=== PATIENT | male | born 1990 | race Caucasian/White ===

== ENCOUNTER 2023-07-25 10:07 | Day surgery (SDC) | payer OTHER ==
[~2023-07-25 10:07] MED LIST: LACTATED RINGERS 1,000 ML IV SCH
[2023-07-25 10:55] VITALS: RESP 16; TEMP 97.5
[2023-07-25] MEDS ORDERED: PROPOFOL 10 MG/ML 20 ML VIAL IV ONE (11:44)
[2023-07-25] MEDS ORDERED: LIDOCAINE 1% INJ 10MG/ML (20 ML MDV) ONE (11:44)
--- NOTE | 2023-07-25 11:55 | P.PCN ---
Date of Procedure: 07/25/23 Procedure(s) Performed: BRIEF HISTORY: Patient is a 32-year-old, pleasant, white male scheduled for an upper endoscopy as a part of evaluation of long-standing history of GERD. Lately has been having intermittent chest pain and pressure like sensation that happens once a week or so results. Denies any dysphagia or anesthesia.. PROCEDURE PERFORMED: Esophagogastroduodenoscopy with biopsy. PREOPERATIVE DIAGNOSIS: Atypical chest pain. IV sedation per anesthesia. PROCEDURE: After informed consent was obtained, the patient was brought into the endoscopy unit. IV sedation was administered by Anesthesia under continuous monitoring. Initially the Olympus GIF-140 video endoscope was inserted into the mouth. Esophagus intubated without any difficulty. It was gradually advanced into the stomach and duodenum and carefully examined. The bulb and the second part of the duodenum appeared normal. The scope at this time was withdrawn to the stomach, adequately insufflated with air, and upon careful examination, mucosa of the antrum, had patchy areas of erythema consistent with gastritis and biopsies were done from this area. Mucosa of the body, cardia and the fundus appeared normal. The scope was then withdrawn into the esophagus. The GE junction was located at 41 cm from the incisors. The esophagus appeared normal. There were no erosions or ulcerations seen , biopsies were done from the distal esophagus and the patient tolerated the procedure well. IMPRESSION: 1. Normal-appearing esophagus with no evidence of esophagitis or esophageal stricture. 2. Mild antral gastritis. RECOMMENDATIONS: The findings of this examination were discussed with the patient as well as his family. He was advised to follow with the biopsy results. In the meantime will give him a trial of omeprazole 20 mg daily and was briefly educated about antireflux measures..
[2023-07-25 12:38] VITALS: BP 113/76; PULSE 67
== END 2023-07-25 12:55 | disposition home or self-care (01) ==
LOC: ORWHC2ENDO 10:07
PROVIDERS: ATTEND Internal Medicine Gastroenterology
DX: K29.50 Unspecified chronic gastritis without bleeding (principal); K21.00 Gastro-esophageal reflux disease with esophagitis, without bleeding; Z79.899 Other long term (current) drug therapy
CPT/HCPCS: 88305; 43239; J2001; J2704

== ENCOUNTER → 2023-10-17 | Outpatient (CLI) | payer OTHER ==
--- NOTE | 2023-10-20 15:26 | US ---
EXAMINATION TYPE: US gallbladder DATE OF EXAM: 10/17/2023 COMPARISON: NONE CLINICAL INDICATION: Male, 33 years old with history of R07.89 OTHER CHEST PAIN; Patient states upper chest pain. Has acid reflux. TECHNIQUE: Multiple sonographic images of the right upper quadrant are obtained. FINDINGS: EXAM MEASUREMENTS: Liver Length: 13.1 cm Gallbladder Wall: 0.2 cm CBD: 0.5 cm Right Kidney: 10.2 x 4.0 x 5.3 cm YARD ASSISTANT NOTES:Slightly limited due to overlying bowel gas Pancreas: Visualized portions WNL. Partially obscured by overlying gas. Liver: wnl Gallbladder: A few mural-based, nonshadowing areas of nodularity measuring up to 3 mm. No abnormal g allbladder wall thickening, hydropic change, or surrounding fluid. Evidence for sonographic Weiss's sign: No CBD: wnl Right Kidney: No hydronephrosis or masses seen as best visualized IMPRESSION: 1. A few mural based nodules along the gallbladder wall measuring up to 3 mm. Probably small gallblad alton wall polyps. Six-month follow-up ultrasound to reassess. 2. No shadowing stones or biliary ductal dilatation.
== END | disposition home or self-care (01) ==
LOC: RADUSWWP 09:13
PROVIDERS: ATTEND Internal Medicine Gastroenterology
DX: R07.89 Other chest pain (principal)
CPT/HCPCS: 76705

== ENCOUNTER 2023-11-02 04:04 | Emergency (ER) | payer OTHER ==
--- NOTE | 2023-11-02 04:35 | ED ---
ENT HPI - General Chief complaint: ENT Stated complaint: ear pain Time Seen by Provider: 11/02/23 04:15 Source: patient Mode of arrival: ambulatory Limitations: no limitations - History of Present Illness Initial comments: 33-year-old male who presents emergency department reporting left ear pain. Patient states he has some symptoms of an upper respiratory infection was started a couple of days ago. States he has had a sore scratchy throat with a mild cough. States that his symptoms started improving. Tonight he was awakened from sleep with significant left ear pain which feels like it radiates into the back of his throat. He does admit that his child has been sick. He denies any fevers. No nausea or vomiting. No diarrhea. No other alleviating, precipitating modifying factors - Related Data Home Medications Medication Instructions Recorded Confirmed Acetaminophen Tab [Tylenol] 325 mg PO Q4-6H PRN 07/23/23 07/25/23 Ibuprofen [Motrin Ib] 200 mg PO Q6H PRN 07/23/23 07/25/23 Previous Rx's Medication Instructions Recorded Amoxicillin 875 mg PO Q12HR #14 tablet 11/02/23 Allergies Allergy/AdvReac Type Severity Reaction Status Date / Time No Known Allergies Allergy Verified 11/02/23 04:11 Review of Systems ROS Statement: Those systems with pertinent positive or pertinent negative responses have been documented in the HPI. ROS Other: All systems not noted in ROS Statement are negative. Past Medical History Past Medical History: GERD/Reflux Additional Past Medical History / Comment(s): Chest pain/heartburn History of Any Multi-Drug Resistant Organisms: None Reported Additional Past Surgical History / Comment(s): Sinus surgery/deviated septum/turbinate reduction, lasik eye surgery, wisdom teeth extractions. Past Anesthesia/Blood Transfusion Reactions: No Reported Reaction Past Psychological History: Anxiety, Depression Smoking Status: Never smoker Past Alcohol Use History: Rare Past Drug Use History: None Reported - Past Family History Father Family Medical History: Hyperlipidemia Mother Family Medical History: Hypertension General Exam Limitations: no limitations General appearance: alert, in no apparent distress Head exam: Present: atraumatic, normocephalic, normal inspection Eye exam: Present: normal appearance, PERRL, EOMI. Absent: scleral icterus, conjunctival injection, periorbital swelling ENT exam: Present: other (Left TM is erythematous, bulging. Right TM is betancourt and shiny) Respiratory exam: Present: normal lung sounds bilaterally. Absent: respiratory distress, wheezes, rales, rhonchi, stridor Cardiovascular Exam: Present: regular rate, normal rhythm, normal heart sounds. Absent: systolic murmur, diastolic murmur, rubs, gallop, clicks Neurological exam: Present: alert, oriented X3, CN II-XII intact Psychiatric exam: Present: normal affect, normal mood Course Vital Signs 11/02/23 04:10 Temperature 98.9 F Pulse Rate 81 Respiratory 18 Rate Blood Pressure 122/84 O2 Sat by Pulse 98 Oximetry Medical Decision Making - Medical Decision Making Was pt. sent in by a medical professional or institution (BENIGNO Clark, [employer], urgent care, hospital, or longterm...) When possible be specific @ -No Did you speak to anyone other than the patient for history (EMS, parent, family, police, friend...)? What history was obtained from this source @ -No Did you review nursing and triage notes (agree or disagree)? Why? @ -I reviewed and agree with nursing and triage notes Were old charts reviewed (outside hosp., previous admission, EMS record, old EKG, old radiological studies, urgent care reports/EKG's, longterm records)? Report findings @ -No old charts were reviewed Differential Diagnosis (chest pain, altered mental status, abdominal pain women, abdominal pain men, vaginal bleeding, weakness, fever, dyspnea, syncope, headache, dizziness, GI bleed, back pain, seizure, CVA, palpatations, mental health, musculoskeletal)? @ -Otitis media, otitis externa, strep, influenza, COVID EKG interpreted by me (3pts min.). @ -Not done X-rays interpreted by me (1pt min.). @ -None done CT interpreted by me (1pt min.). @ -None done U/S interpreted by me (1pt. min.). @ -None done What testing was considered but not performed or refused? (CT, X-rays, U/S, labs)? Why? @ -None What meds were considered but not given or refused? Why? @ -None Did you discuss the management of the patient with other professionals (professionals i.e. BENIGNO Clark, [employer], lab, RT, psych nurse, social media intern, machine ironer, teacher, community cultural development officer, housing case manager)? Give summary @ -No Was smoking cessation discussed for >3mins.? @ -No Was critical care preformed (if so, how long)? @ -No Were there social determinants of health that impacted care today? How? (Homelessness, low income, unemployed, alcoholism, drug addiction, transportation, low edu. Level, literacy, decrease access to med. care, snf, rehab)? @ -No Was there de-escalation of care discussed even if they declined (Discuss DNR or withdrawal of care, Hospice)? DNR status @ -No What co-morbidities impacted this encounter? (DM, HTN, Smoking, COPD, CAD, Cancer, CVA, ARF, Chemo, Hep., AIDS, mental health diagnosis, sleep apnea, morbid obesity)? @ -None Was patient admitted / discharged? Hospital course, mention meds given and route, prescriptions, significant lab abnormalities, going to OR and other pertinent info. @ -Upon arrival patient was seen and evaluated in room 24. Thorough history and physical exam was performed. Left TM is injected. As patient does report to sore throat he will be swabbed for influenza, COVID and RSV. This testing is negative. Patient will be initiated on antibiotics for his left otitis media. Instructed to follow-up with primary care doctor for reevaluation return for any new or worsening symptoms. Patient agreeable to plan was discharged in stable condition Undiagnosed new problem with uncertain prognosis? @ -No Drug Therapy requiring intensive monitoring for toxicity (Heparin, Nitro, Insulin, Cardizem)? @ -No Were any procedures done? @ -No Diagnosis/symptom? @ -Acute left ear pain, acute otitis media Acute, or Chronic, or Acute on Chronic? @ -Acute Uncomplicated (without systemic symptoms) or Complicated (systemic symptoms)? @ -Uncomplicated Side effects of treatment? @ -No Exacerbation, Progression, or Severe Exacerbation? @ -No Poses a threat to life or bodily function? How? (Chest pain, USA, NC, pneumonia, PE, COPD, DKA, ARF, appy, cholecystitis, CVA, Diverticulitis, Homicidal, Suicidal, threat to staff... and all critical care pts) @ -No - Lab Data Lab Results 11/02/23 Range/Units 04:36 Influenza Type A (PCR) Not Detected (Not Detectd) Influenza Type B (PCR) Not Detected (Not Detectd) RSV (PCR) Not Detected (Not Detectd) SARS-CoV-2 (PCR) Not Detected (Not Detectd) Disposition Clinical Impression: Otitis media, left, Pharyngitis Disposition: HOME SELF-CARE Condition: Stable Instructions (If sedation given, give patient instructions): Ear Infection (ED) Additional Instructions: Please take the medications as directed. Follow-up with your primary care docto r and return for any new or worsening symptoms Prescriptions: Amoxicillin 875 mg PO Q12HR #14 tablet Is patient prescribed a controlled substance at d/c from ED?: No Referrals: Isabel Reid DO [Primary Care Provider] - 1-2 days Time of Disposition: 04:35
[2023-11-02] MEDS: AMOXICILLIN 875 MG TAB PO STA (04:45)
[2023-11-02 05:18] VITALS: BP 122/84; PULSE 81; RESP 18; TEMP 98.9
== END 2023-11-02 04:48 | disposition home or self-care (01) ==
LOC: EC 04:04
DX: J02.9 Acute pharyngitis, unspecified (principal); H66.92 Otitis media, unspecified, left ear
CPT/HCPCS: 87636; 99283